=== PATIENT | female | born 1960 | race Caucasian/White ===

== ENCOUNTER 2018-09-15 22:25 | Emergency (ER) | payer OTHER ==
[2018-09-15] MEDS: LIDOCAINE 1% (MPF) 5 ML VIAL INJ (23:02)
== END 2018-09-15 23:51 | disposition home or self-care (01) ==
LOC: FTE 23:51
DX: N75.0 Cyst of Bartholin's gland (principal); J45.909 Unspecified asthma, uncomplicated; I10 Essential (primary) hypertension; E11.9 Type 2 diabetes mellitus without complications; Z79.84 Long term (current) use of oral hypoglycemic drugs
CPT/HCPCS: 56420; 99283-25

== ENCOUNTER 2018-11-17 21:54 | Emergency (ER) | payer OTHER ==
[2018-11-18] MEDS: NICARDipine HCL 30 MG CAPSULE PO (02:02)
== END 2018-11-18 03:28 | disposition home or self-care (01) ==
LOC: E/R 21:54
DX: S99.921A Unspecified injury of right foot, initial encounter (principal); I10 Essential (primary) hypertension; J45.909 Unspecified asthma, uncomplicated; E11.9 Type 2 diabetes mellitus without complications; W20.8XXA Other cause of strike by thrown, projected or falling object, initial encounter; Y92.9 Unspecified place or not applicable; Z79.84 Long term (current) use of oral hypoglycemic drugs
CPT/HCPCS: 93005; 99283-25